=== PATIENT | female | born 1990 | race Hispanic/Latino ===

== ENCOUNTER 2016-03-28 07:15 | Emergency (ER) | payer OTHER ==
[~2016-03-28] VITALS: Ht 152.4 cm; Wt 77.2 kg
[2016-03-28 07:17] VITALS: BP 118/70; PULSE 86; RESP 12; O2SAT 97
--- NOTE | 2016-03-28 07:34 | ED.REPORT ---
HPI-Preg Under 20 Weeks Date of Service Mar 28, 2016 ED Provider: Yoshi Abbott DO Patient is a 25 year old female with a history of miscarriages who is 10 weeks who reports to the ED complaining of spotting onset yesterday morning. She had light spotting yesterday morning which went away and became heavier this morning. This is the first spotting she has noticed in the . Patient has had 3 previous pregnancies, the first 2 miscarried before 6 weeks and the third was successful, and she now has a son about 2 years old. She had an ultrasound one week ago which detected the babies heartbeat. Nursing Notes Stated Complaint: BLEEDING/10 WKS Chief Complaint: Female Abdominal Pain Nursing Notes Reviewed: Yes Allergies: Coded Allergies: No Known Allergies (Unverified , 12/24/15) General Time Seen by Provider: 07:34 Chief Complaint Vaginal bleeding Context: : Known 1st trim Hx Obtained From: Patient Arrived By: Walk-in Onset Occurred: Yesterday Symptom Duration: Since onset Progression Since Onset: Intermittent Severity: Current: No pain currently Severity: Maximum: No pain Recent Healthcare: Recent doctor visit Similar Sx Previous: No Past Medical History Past Medical History [id number] 2 miscarriages Past Surgical History none reported Smoking History Unknown if Ever Smoker Social History Alcohol Use: Denies alcohol use Other Social History: Good social support Ambulatory Status Independent Review of Systems Constitutional: Denies: Weakness - generalized Female: Reports: Vaginal bleeding - abnl Neurologic: Denies: Lightheaded Complete sys rev & neg: except as marked. Physical Exam Initial Vital Signs Initial VS: Reviewed Head / Eyes: Atraumatic, Normocephalic, PERRL ENT: Mucous membranes moist, Conjunctiva normal, No scleral icterus Neck: Supple, Non-tender, Full range of motion Respiratory: Breath sounds normal, Clear to auscultation, No respiratory distress Cardiovascular: Regular rate & rhythm, Heart sounds normal, Intact distal pulses Skin: Warm, Dry, No cyanosis Neurologic: Alert, Oriented, Nonfocal Psychiatric: Mood/affect normal, Behavior normal, Normal thought content General/Constitutional: Awake, Alert, No acute distress, Well appearing, Cooperative, Not toxic appearing Abdomen: Soft, Non-tender, No guarding, No rebound Female Genitourinary: Exam deferred : FHT present by U/S, movement present Re-Eval/Medical Decision Med Decision/Clinical Course Ob office confirms blood type B+ Re-Evaluation/Progress : Time of Eval: 08:50 Re-Evaluation/Progress Note: Pt rechecked. Informed pt of plan for treatment. Pt understands and agrees with plan for treatment. F/U instructions and RTER warnings given. All questions addressed. Counseled Regarding: Diagnosis, Lab results, Need for follow-up, When/why to return to ED Discharge & Departure Primary Impression: Threatened miscarriage Disposition: Home Discharge Condition All VS Reviewed: Yes Condition: Stable Patient Instructions: (GEN) Additional Instructions: Your ultrasound shows a healthy baby with a heartbeat. At this point things look good. You should follow up with your INSURANCE FOLLOW UP REP as scheduled. Return for new or worsening symptoms. Referrals: Jewell Braun MD (PCP) Mami Attestation Portion of this note were transcribed by Layo Alexandra and Brian Cotton. I, Dr. Abbott, personally performed the history, physical exam, and medical decision-making: I reviewed and confirmed the accuracy for the information in the transcribed note. Signed by: mami Araujo, 03/28/16 0800 copies to: Jewell Braun MD, Gary R DO Mar 28, 2016 07:34 BRIAN COTTON Mar 28, 2016 07:53 LAYO ALEXANDRA Mar 28, 2016 09:14 Signed by: mami Araujo, 03/28/16 0800 copies to: Jewell Braun MD, Gary R DO Mar 28, 2016 07:34 BRIAN COTTON Mar 28, 2016 07:53 LAYO ALEXANDRA Mar 28, 2016 09:14
== END 2016-03-28 08:22 | disposition home or self-care (01) ==
LOC: SED 07:15
DX: O20.0 Threatened abortion (principal); Z3A.10 10 weeks gestation of pregnancy

== ENCOUNTER 2016-10-08 04:50 | Inpatient (IN) | payer OTHER ==
[~2016-10-08] VITALS: Ht 153.7 cm; Wt 94.3 kg
[2016-10-08] MEDS ORDERED: Lactated Ringer's 1,000 ML IV PRN (05:19)
[2016-10-08] MEDS ORDERED: Methylergonovine 0.2 mg/mL Inj IM PRN ×2 (05:20→10:50)
[2016-10-08] MEDS ORDERED: Hemorrhage Kit, Post Partum XX ONE ×2 (05:20→10:50)
[2016-10-08] MEDS ORDERED: Oxytocin 10 Unit/mL Inj IM PRN ×2 (05:20→10:50)
[2016-10-08] MEDS ORDERED: Oxytocin 30 Units/500 mL LR 30 UNITS in IV Premix 1 EACH IV PRN ×2 (05:20→10:50)
[2016-10-08] MEDS ORDERED: Carboprost 250 mCg/mL Inj IM PRN ×2 (05:20→10:50)
[2016-10-08] MEDS ORDERED: Sodium Chloride LOK Flush 10 mL Syringe IVFLUSH PRN ×2 (05:20→10:50)
[2016-10-08] MEDS ORDERED: METF500T4 PO (05:56)
[2016-10-08 06:02] LABS: Mean Corpuscular Hemoglobin 28.1 pg (27.0-35.0); Mean Corpuscular Volume 85.1 fL (81-100)
[2016-10-08] MEDS ORDERED: Lactated Ringer's 500 ML IV ONE (08:07)
[2016-10-08] MEDS ORDERED: EPHEDrine Sulfate 50 mg/mL Inj IVPUSH PRN ×2 (08:10→09:20)
[2016-10-08] MEDS ORDERED: Atropine 1 mg/10 mL (Code) Syringe IVPUSH PRN (08:10)
[2016-10-08] MEDS ORDERED: Ondansetron 2 mg/mL 2 mL Inj IVPUSH PRN (08:10)
[2016-10-08] MEDS ORDERED: fentaNYL 2 mCg/mL-Bupiv 0.125% 100 ML EPIDURAL SCH (08:10)
--- NOTE | 2016-10-08 08:10 | PCM.HPANE ---
Patient Data Surgeon Admitting Provider:Junior Rivas MD Attending Provider:Junior Rivas MD Primary Care Physician:Junior Rivas MD Other Provider:Melissa Rebolledo Anesthesia Reason for Visit Active Labor ACTIVE LABOR Ht/WT & BMI Body Mass Index Allergies Coded Allergies: No Known Allergies (Unverified , 12/24/15) Past Anesthesia History Anesthesia History: Denies:: Abnormal Airway, Difficult Intubation Diabetes History Hx Diabetes?: Yes Type of Diabetes: Type II MRSA MRSA: No Medications Hypertension Medication: No Home Meds Incl Beta Sonia: No Reported Medications Metformin 500 Mg [id number] Mg PO DAILY Ref 0 10/08/16 History History of ENT Problems?: No HEENT History: Denies:: Abnormal Airway Cataracts Difficult Intubation Dysphagia Glaucoma Hearing Problem Sinus Problem TMJ Denture Type: None Teeth Condition: Within Normal Limits Hx of Heart Problems?: No Cardiovascular History: Denies:: AICD Abdominal Aortic Aneurism Atrial Fibrillation Cardiac Surgery Chest Pain Congestive Heart Failure Coronary Artery Disease Edema Heart Murmur Hypertension Irregular Heartbeat Pacemaker Peripheral Vascular Rheumatic Fever Thrombophlebitis Valvular Heart Disease Hx of Respiratory Problem?: No Respiratory History: Denies:: Asthma COPD Chest Surgery Cough Dyspnea Emphysema Hemoptysis Oxygen Administration Pneumonia Pulmonary Embolism Tuberculosis Use of C-PAP Machine Use of Inhalers / NEBS Hx Neurologic Problems?: No Neurological History: Denies:: Alzheimer's Disease CVA Dementia Dizziness Headaches Multiple Sclerosis Parkinson's Disease Peripheral Neuropathy Seizures TIA Hx of GI Problems?: No Gastrointestinal History: Denies:: Cirrhosis Diverticulitis Gall Bladder Disease Gastroesphageal Reflux Gastrointestinal Bleeding Heartburn Hepatitis Hiatal Hernia Liver Disease Rectal Bleeding Hx of Problems?: No Genitourinary History: Denies:: HX of Hemodialysis Kidney Stones Urinary Tract Infection Female Hx: Positive for:: Currently Skin History: Denies:: History Skin Disorders? Pressure Ulcers Hx Musculoskeletal Problems?: No Musculoskeletal History: Denies:: Back Injury Degenerative Joint Fibromyalgia Joint Replacement Musculoskeletal Trauma Myasthenia Gravis Osteoarthritis Rheumatoid Arthritis Systemic Lupus Hx Surgeries?: No Hx Diabetes: No Hx Alcohol Use: NoHx Substance Use: No Smoking Status: Never Smoker Have You Smoked inLast 12 mo: No Stop/Bang Treated for Sleep Apnea?: No Do You Have a CPAP Machine?: No Risk Assessment Category Category 1A: Patient has history of documented sleep apnea, and HAS NOT received any narcotic, sedative or anesthesia administration during this stay. Category 1B: Patient has history of documented sleep apnea, and HAS received any narcotic , sedative or anesthesia administration during this stay Category 2: Patient has SUSPECTED Obstructive Sleep Apnea, and HAS received any narcotic , sedative or anesthesia administration during this stay. Category 3: Patient has SUSPECTED Obstructive Sleep Apnea and HAS NOT received narcotic, sedative or anesthesia administration during this stay. Category 4: Outpatient in Procedural Areas with known sleep apnea or who screen positive for High Risk via the STOP/BANG questionnaire. Exam Exam General Appearance: Alert, Oriented X3, Cooperative, Moderate Distress HEENT/AIRWAY: MP 2 Lungs: Clear to Auscultation, Normal Air Movement Heart: Exam Unremarkable, Regular Rate/Rhythm, No Murmurs/Rubs/Gallops Meds/Labs/Diagnostics Labs Test 10/08/16 05:30 White Blood Count 7.0th/mm3 (3.8-10.1) Red Blood Count 4.02mil/mm3 (3.90-5.20) Hemoglobin 11.3g/dL (12.0-15.6) Hematocrit 34.2% (35.0-46.0) Mean Corpuscular Volume 85.1fL (81-100) Mean Corpuscular Hemoglobin 28.1pg (27.0-35.0) Mean Corpuscular Hemoglobin Concent 33.0% (32.0-37.0) Red Cell Distribution Width 13.0% (12.3-15.4) Platelet Count 172bil/L (150-400) Plan Impression Patient chart reviewed, patient interviewed and anesthestic plan with risks, benefits, and alternatives discussed, and informed consent obtained. ASA Physical Status: ASA3 Severe Disease (bmi 40) Anesthetic Plan: Epidural Bene/Risks/Altern/Consents: Yes HP Complete Prior to Induction: Yes Tyrell Alexis MD Oct 08, 2016 08:10
[2016-10-08] MEDS: Lactated Ringer's 1,000 ML IV SCH ×2 (08:12→16:07)
[2016-10-08] MEDS ORDERED: Propofol 10,000 mCg/mL 20 mL Inj ONE (08:29)
[2016-10-08] MEDS ORDERED: Ondansetron 2 mg/mL 2 mL Inj ONE (08:29)
[2016-10-08] MEDS ORDERED: Morphine PF 1 mg/mL 10 mL Inj ONE (08:29)
[2016-10-08] MEDS: Sodium Chloride LOK Flush 10 mL Syringe IVFLUSH SCH ×2 (08:30→16:30)
--- NOTE | 2016-10-08 08:34 | HP ---
[address] [address] HISTORY AND PHYSICAL PATIENT: YOEL JERRY : 1990 MR#: [id number] ADMIT: 10/08/2016 JOB ID: [id number] CHIEF COMPLAINT: Contractions. HISTORY OF PRESENT ILLNESS: This is a 25 years old 4, para 1-0-2-1 at 38 weeks and 1 day dated by six weeks ultrasound. complicated with GDM diagnosed at 33 weeks. Easrly diabetes screening was negative. A 27-week diabetes screening was negative. Random glucose was elevated at 33 weeks, confirmed by elevated 1 hour and 3 hours glucose tolerance test. The patient was started on metformin daily with well control polyhydramnios, three echogenic cardiac focus, quads screen is negative. Echogenic intracardiac focus resolved by MFM scan. Transient elevation in blood pressure in one of the NST visits. Blood pressure normal since. Normal preeclampsia labs except for positive proteinuria with a protein creatinine ratio of 0.3. Otherwise asymptomatic. Group B strep negative. The patient had regular care, but care is missing from the records secondary to HR malfunction. PAST OBSTETRIC HISTORY: First was a spontaneous in 2012. Second was a full-term delivered via normal vaginal delivery at [facility]. Outcome male 6 pounds 14 ounces, no complications. Third is spontaneous in December 2015. PAST MEDICAL HISTORY: Noncontributory. No surgeries. GYNECOLOGIC HISTORY: Menarche at age 14. Regular menstrual cycles. Last menstrual period was uncertain. History of Chlamydia November 2015. Negative gonorrhea and chlamydia screening February 2016. No history of abnormal Pap smears. FAMILY HISTORY: Diabetes mellitus mother, sister, maternal grandmother, and maternal grandfather. Congenital malformation holoprosencephaly a niece, triplets cousins, learning disorder multiple family members. SOCIAL HISTORY: Denies smoking, alcohol, or illicit drug abuse. MEDICATION: 1. Metformin 500 mg daily. 2. vitamins. ALLERGIES: No known drug allergies. REVIEW OF SYSTEMS: A 10-point review of systems negative except for the items in the history of presenting illness. PHYSICAL EXAMINATION: Vital signs: Blood pressure is 146/95, heart rate 84, respiratory rate 18, temperature 36.9. General, alert and oriented to time, place, and person. Head is normocephalic, atraumatic. Neck is supple. Chest equal air entry bilaterally. No added sounds. Cardiovascular S1 plus S2 plus zero. Abdomen gravid, no tenderness. Cervix is 7-8 cm, 100% effaced. Controlled rupture of membranes was performed. head was palpated to be well applied to the cervix. LABS: Admission labs: Hemoglobin 11.3, hematocrit 34.2%, white blood cells 7, platelets 172. labs: Blood type is B positive. Rubella immune, RPR nonreactive, hepatitis B surface antigen nonreactive. Antibody screening negative February 16, 2016. HIV screening negative. Gonorrhea and chlamydia screening negative February 16, 2016. Glucose tolerance test negative March 2016. One-hour glucose screening negative July 2016. Random finger glucose 164 August 2016. One hour glucose screening elevated September 15, 2016. Three hour glucose screening is normal September 19, 2016. Fasting 111 one hour 190, two hours 217, three hours 199. Group B strep negative September 24, 2016. Protein creatinine ratio 0.31 on September 29, 2016. Rest of preeclampsia labs within normal limits. Last Pap smear May 05, 2016 within normal limits. ASSESSMENT AND PLAN: This is a 25-year-old 4, para 1-0-2-1 at 38 weeks and 1 day with active labor, known polyhydramnios, known gestational diabetes controlled with metformin. Recent growth ultrasounds within normal limits at the [facility]. Growth at 69 percentile, estimated weight 3326 g and polyhydramnios fluid is 30 cm. Will admit with orders and labs. Artificial rupture of membrane was performed. Anticipate normal vaginal delivery.
[2016-10-08] MEDS ORDERED: Sodium Citrate-Citric Acid 15 mL Solution ONE ×2 (08:43)
[2016-10-08] MEDS ORDERED: CeFAZolin Inj 2 GM in IV Premix 1 EACH IV SCH (08:45)
[2016-10-08] MEDS ORDERED: Sodium Citrate-Citric Acid 15 mL Solution PO SCH (08:45)
[2016-10-08] MEDS ORDERED: fentaNYL-PF 50 mCg/mL 2 mL Inj IVPUSH PRN (09:20)
[2016-10-08] MEDS ORDERED: Atropine 0.4 mg/mL Inj IV PRN (09:20)
[2016-10-08] MEDS ORDERED: LANOlin HPA 7 Gm Ointment TOPICAL PRN (10:50)
[2016-10-08] MEDS ORDERED: Lactated Ringer's 1,000 ML IV SCH (10:50)
[2016-10-08] MEDS ORDERED: hydrOXYzine Pamoate 25 mg Capsule PO PRN (10:50)
[2016-10-08] MEDS: Oxytocin 30 Units/500 mL LR 30 UNITS in IV Premix 1 EACH IV SCH ×2 (11:10→16:10)
[2016-10-08] MEDS: Acetaminophen IV 1,000 MG in IV Premix 1 EACH IV PRN ×3 (11:36→23:36)
--- NOTE | 2016-10-08 13:11 | OP ---
[address] [address] OPERATIVE REPORT PATIENT: YOEL JERRY : 1990 MR#: [id number] ADMIT: 10/08/2016 JOB ID: [id number] DATE OF SURGERY: 10/08/2016 SURGEON: Junior Rivas MD BIRD RAISER: China Aponte MD (web production assistant was required for retraction, exposure, and safe delivery of the and safe completion of the procedure). PREOPERATIVE DIAGNOSIS(ES): 1. Intrauterine at 38 weeks and 2 days. 2. Malpresentation, face presentation with mentum posterior. 3. Gestational hypertension. 4. Possible preeclampsia, laboratories pending. 5. Gestational diabetes controlled with metformin. 6. Obesity, prepregnancy body mass index 31.8, current body mass index 40. 7. Polyhydramnios. POSTOPERATIVE DIAGNOSIS(ES): 1. Intrauterine at 38 weeks and 2 days. 2. Malpresentation, face presentation with mentum posterior. 3. Gestational hypertension. 4. Possible preeclampsia, laboratories pending. 5. Gestational diabetes controlled with metformin. 6. Obesity, prepregnancy body mass index 31.8, current body mass index 40. PROCEDURE: Primary delivery. COMPLICATIONS: None. ANESTHESIA: Epidural. INTRAVENOUS FLUID: 1400 mL crystalloid fluid. ESTIMATED BLOOD LOSS: 700 mL. URINE OUTPUT: 100 mL. OUTCOME: Female delivered in cephalic presentation. Apgars 9 at 1 minute and 9 at 5 minutes, respectively. Weight 3587 g equivalent to 7 pounds 14 ounces. Clear amniotic fluid. No nuchal cord. Normal uterus, fallopian tubes, and ovaries. INDICATION: This is a 25-year-old, 4, para 1-0-2-1, presented at 38 weeks and 2 days gestation with active labor. Cervix was 6 cm at presentation. One and 1/2 hours later, cervix found to be 7 cm with bulging bag. Artificial rupture of membranes was performed. Clear amniotic fluid was noted. One and 1/2 hours later, her cervix remained at 7 cm. Presentation was found to be face presentation with mentum posterior. Attempt to rotate the head and to correct the presentation failed. The patient was given 0.25 mg of terbutaline to relax contractions and a further attempt to rotate the presenting part failed. The patient was offered primary section for malpresentation. Risks, benefits and alternatives of section were reviewed with the patient in detail. All questions were answered. Informed consent was signed. The patient desires to proceed with a primary section. PROCEDURE IN DETAIL: After informed consent was obtained, the patient was taken to the operation room. She was placed under adequate epidural anesthesia that was bolused to adequate level. Then the patient was placed in supine position with left lateral tilt. An attempt to rotate the presenting part failed. Then the patient was placed in supine position and left lateral tilt. She was prepped and draped in usual sterile fashion for abdominal procedure. A Pfannenstiel skin incision was made at the level of two fingerbreadths above the symphysis pubis. The initial incision was carried down to the fascia with Bovie cautery. The initial fascial incision was made with a scalpel that was extended bilaterally with Finn scissors in a curvilinear fashion. Then, the inferior aspect of the fascia was grasped on either side of the midline and the fascia was dissected off the underlying rectus muscles with blunt and sharp dissection. Then, attention was turned to the superior aspect of the fascia that was grasped at either side of the midline and the fascia was dissected off the underlying rectus muscles with blunt and sharp dissection. The rectus muscles were then in the midline. The peritoneum was identified and entered bluntly. The peritoneal opening was then extended with Metzenbaum scissors under direct visualization. With further gentle traction bilaterally, the peritoneal opening was extended. Bladder blade was placed. The lower uterine segment was identified. An incision was made with a scalpel and was extended bilaterally with bandage scissors. Infant head was brought out to the incision after rotating the head in occiput anterior position. The was delivered with assistance of moderate amount of fundal pressure. No nuchal cord. Shoulders delivered without difficulty. Delayed cord clamping was performed after 1 minute. Cord blood was collected for typing. Placenta was delivered manually intact. The uterus was exteriorized and cleared of any remaining clots and debris. The uterine incision was closed with 0-Vicryl in a running, interlocking fashion. A second imbricating layer was performed with good hemostasis. The posterior cul-de-sac was cleared of any remaining clots and debris. After irrigation, the uterus was placed back into the peritoneal cavity. Lateral gutters were cleared of any remaining clots and debris. The uterine incision was revisited and noted to be hemostatic. Superficial bleeders at the peritoneal edges were cauterized and hemostasis was ensured. The peritoneum was closed with 4-0 Vicryl in a running fashion. The fascia was closed with 0-Vicryl in a running fashion. The subcutaneous layer was approximated with several simple interrupted stitches of 2-0 chromic. The skin was closed with 4-0 Monocryl in subcuticular fashion. Steri-Strips were applied. All instrument, needles and sponge counts were correct x2. Mother was transferred to the delivery room in stable condition. Junior Corral MD, was present and scrubbed for the entire procedure.
[2016-10-08] MEDS ORDERED: Promethazine Inj 25 MG in Dextrose 5%-Pha MIX 50 ML IV PRN (19:00)
[2016-10-08] MEDS ORDERED: 0.9% Sodium Chloride 1,000 ML IV ONE (19:00)
[2016-10-08] MEDS: 0.9% Sodium Chloride 1,000 ML IV SCH (21:52)
[2016-10-09] MEDS: 0.9% Sodium Chloride 1,000 ML IV SCH ×3 (03:00→19:00)
[2016-10-09] MEDS: Acetaminophen IV 1,000 MG in IV Premix 1 EACH IV PRN (06:34)
[2016-10-09 07:11] LABS: Mean Corpuscular Hemoglobin 27.6 pg (27.0-35.0); Mean Corpuscular Volume 86.2 fL (81-100)
--- NOTE | 2016-10-09 07:47 | PCM.ANEP1 ---
Post Anesthesia PACU Phase 1 Assessment Anesthetic Administered: Epidural Level of Alertness: Awake, talking GUPTA's with Equal Strength: Yes Pain: No Pain Scale Score: 0 Nausea or Vomiting: No CV Function & Hydration Stable: Yes Airway Device: natural Oxygen Delivery: Room Air Lungs: Clear to Auscultation, Normal Air Movement Dermatome Level: Full Sensation PACU Phase 2 Assessment Complications: No Follow up Care: No Patient Instructions Provided: N/A Tyrell Alexis MD Oct 09, 2016 07:47
[2016-10-09] MEDS: Ascorbic Acid 500 mg Tablet PO SCH (11:11)
--- NOTE | 2016-10-09 13:28 | PCM.PNOBPP ---
Subjective Date of Service Oct 09, 2016 Post : Primary Ceserean Delivery Lochia: Normal Pain Management: PO pain meds Gastrointestinal: Good Appetite, No N/V Postop Activity: Ambulating in [facility] Laboratory Tests 10/08/16 11:25: Hematology Comments 10/09/16 06:41: White Blood Count 9.0, Red Blood Count 2.75, Mean Corpuscular Volume 86.2, Mean Corpuscular Hemoglobin 27.6, Mean Corpuscular Hemoglobin Concent 32.1, Red Cell Distribution Width 12.8, Platelet Count 144 10/09/16 13:18: Exam Vital Signs Vital Signs: VS reviewed, stable Exam Abdomen: Fundus firm, Abdomen soft, Abdomen appropriately tender Lungs: Clear to Auscultation Heart: Exam Unremarkable General: Alert, Oriented X3 Surgical Wound : Dressing & Drainage Status: Dry & Intact OB Post Assessment/Plan Assessment 25 y POD#1 S/P PCD for malpresentation (face presentaion) Appropriate postop recovery * Gestational hypertension on metformin (500 mg daily) * Possible preeclampsia, laboratories WNL, BP WNL post . * Obesity Post plan: Continue routine post care Junior Rivas MD Oct 09, 2016 13:28
[2016-10-09] MEDS: oxyCODONE-Acetamin 5-325 mg Tablet PO PRN (21:19)
[2016-10-10] MEDS: 0.9% Sodium Chloride 1,000 ML IV SCH ×2 (03:00→11:00)
[2016-10-10] MEDS: oxyCODONE-Acetamin 5-325 mg Tablet PO PRN ×2 (05:24→11:01)
[2016-10-10] MEDS: Ascorbic Acid 500 mg Tablet PO SCH (07:37)
--- NOTE | 2016-10-10 13:30 | PCM.DC.OB ---
Obstetrical Discharge Summary Date of Service Oct 10, 2016 Date of hospital admission Oct 08, 2016 at 05:00 Providers Admitting Physician: Junior Rivas MD Primary Care Physician: Junior Rivas MD Attending Physician: Junior Rivas MD Metformin (Metformin) 500 Mg Tablet 500 MG PO DAILY (Reported) Last Taken: Unknown Dose on 10/07/16 Junior Rivas MD Oct 10, 2016 13:30
--- NOTE | 2016-10-10 13:34 | PCM.DIOB ---
Obstetrical Disch Instruction Date of Service: Oct 10, 2016 Dates of Hospitalization Date of Hospital Admission Oct 08, 2016 at 05:00 Providers Admitting Physician: Junior Rivas MD Primary Care Physician: Junior Rivas MD Attending Physician: Junior Rivas MD Discharge Diagnosis Discharge Diagnosis Status primary section Post operative anemia GDM Problems: Diet Discharge Diet: No restrictions Activity Discharge Activity-General: Pelvic Rest for 6 weeks (no sex, no douching nor tampons ), Balance rest and activity, No lifting >10 pounds for 4-6 weeks Dressing and Incisional Care Dressing Care: Allow Steri Stripes to fall off, Other (keep incision dry and clean ) Hygiene: May shower (daily), DO NOT soak incision under water, NO bathtub, hot tub or whirlpool Follow Up Plan Follow-up Provider (F9): China Aponte MD Follow-up appointment: Weeks (Two, then with Dr. Rivas in 6 weeks ) Call your provider for: Fever or Chills, Shortness of breath, Heavy vaginal bleeding, Heavy bleeding, Epigastric pain, Excessive constipation, Vaginal discomfort, Red painful breasts, Other Junior Rivas MD Oct 10, 2016 13:34
[2016-10-10] MEDS ORDERED: Ascorbic Acid PO (13:37)
[2016-10-10] MEDS ORDERED: OXYC1TAB24 PO (13:37)
[2016-10-10] MEDS ORDERED: IBUP-1827 PO (13:37)
[2016-10-10] MEDS ORDERED: FERR-74 PO (13:37)
[2016-10-10] MEDS ORDERED: Simethicone PO (13:37)
[2016-10-10] MEDS ORDERED: DOCU-41 PO (13:37)
[2016-10-10 13:42] VITALS: BP 117/61; PULSE 83; RESP 18
== END 2016-10-10 14:30 | disposition home or self-care (01) | DRG 765 ==
LOC: FBCO 04:50 → FBC 05:00
PROVIDERS: ADMIT Obstetrics & Gynecology; ATTEND Obstetrics & Gynecology
PROC: 10907ZC Drainage of Amniotic Fluid, Therapeutic from Products of Conception, Via Natural or Artificial Opening (ICD-10-PCS; 2016-10-08)
PROC: 10D00Z1 Extraction of Products of Conception, Low, Open Approach (ICD-10-PCS; principal; 2016-10-08 08:53)
DX: O32.3XX0 Maternal care for face, brow and chin presentation, not applicable or unspecified (principal); Z68.41 Body mass index [BMI] 40.0-44.9, adult; O12.14 Gestational proteinuria, complicating childbirth; O40.3XX0 Polyhydramnios, third trimester, not applicable or unspecified; Z3A.38 38 weeks gestation of pregnancy; O24.425 Gestational diabetes mellitus in childbirth, controlled by oral hypoglycemic drugs; Z37.0 Single live birth; O99.214 Obesity complicating childbirth; E66.9 Obesity, unspecified